=== PATIENT | male | born 1980 | race Caucasian/White ===

== ENCOUNTER 2021-09-16 09:49 | Inpatient (IN) | payer OTHER ==
[~2021-09-16] VITALS: Ht 175.3 cm; Wt 97.5 kg
[2021-09-16 12:35] VITALS: BP 132/76
[2021-09-16] MEDS ORDERED: ACETAMINOPHEN 325 MG TABLET PO PRN (13:15)
[2021-09-16] MEDS ORDERED: OxyCODONE HCL 10 MG IR TABLET PO PRN ×2 (13:15→15:30)
[2021-09-16] MEDS ORDERED: MELATONIN 5 MG TABLET PO PRN (14:30)
[2021-09-16] MEDS: ACETAMINOPHEN 325 MG TABLET PO SCH ×2 (14:39→21:52)
[2021-09-16] MEDS: GABAPENTIN 400 MG CAPSULE PO SCH ×2 (16:37→20:35)
[2021-09-16] MEDS: METHOCARBAMOL 750 MG TABLET PO SCH ×2 (16:37→20:36)
[2021-09-16] MEDS ORDERED: SODIUM CL IRRIG SOLN BOTTLE 250 ML IRRIG ONE (16:42)
[2021-09-16 20:10] VITALS: BP 133/65
[2021-09-16] MEDS: CELECOXIB 200 MG CAPSULE PO SCH (20:36)
[2021-09-16] MEDS: DOCUSATE SODIUM 100 MG CAPSULE PO SCH (20:36)
[2021-09-16] MEDS: SENNA 187 MG TABLET PO SCH (20:36)
[2021-09-16] MEDS: ETHYL ALCOHOL 62% ANTISEPTIC NASAL SANITIZER 0.6 ML AMPUL NASAL SCH (21:52)
[2021-09-16] MEDS: OxyCODONE HCL 5 MG IR TABLET PO PRN (22:22)
[2021-09-16] MEDS ORDERED: CITA-144 PO (23:30)
[2021-09-17] MEDS ORDERED: METHOCARBAMOL 750 MG TABLET PO PRN (04:00)
[2021-09-17] MEDS: ACETAMINOPHEN 325 MG TABLET PO SCH ×3 (06:50→21:18)
[2021-09-17 07:17] LABS: EOSINOPHILS % (AUTO) 6.8 % (1.0-6.0); HEMATOCRIT 25.5 % (41-53); HEMOGLOBIN 8.8 g/dL (13.5-17.5); LYMPHOCYTES # (AUTO) 1.3 K/uL (1.0-4.8); LYMPHOCYTES % (AUTO) 26.6 % (22.0-44.0); MEAN CORPUSCULAR HEMOGLOBIN 29.8 pg (26.0-34.0); MEAN CORPUSCULAR HGB CONC 34.4 G/dL (31.0-37.0); MEAN CORPUSCULAR VOLUME 87 fL (80-100); MONOCYTES # (AUTO) 0.6 K/uL (0.1-1.0); MONOCYTES % (AUTO) 11.4 % (2.0-9.0); NEUTROPHILS # (AUTO) 2.7 K/uL (1.8-7.7); NEUTROPHILS % (AUTO) 54.2 % (40.0-70.0); PLATELET COUNT (AUTO) 470 K/uL (150-450); RED BLOOD CELL COUNT(AUTO) 2.94 MIL/uL (4.50-5.90); RED CELL DISTRIBUTION WIDTH 14.3 % (11.5-14.5)
[2021-09-17 07:33] LABS: ALANINE AMINOTRANSFERASE 37 U/L (12-78); ALKALINE PHOSPHATASE 70 U/L (46-116); ANION GAP 10 mmol/L (8-16); ASPARTATE AMINOTRANSFERASE 21 U/L (15-37); BILIRUBIN,TOTAL 0.5 mg/dL (0.1-1.0); CALCIUM, TOTAL 9.1 mg/dL (8.8-10.5); CARBON DIOXIDE 25 mmol/L (22-29); CHLORIDE 104 mmol/L (98-107); CREATININE 0.93 mg/dL (0.60-1.30); GLUCOSE,RANDOM 88 mg/dL (70-110); POTASSIUM 3.6 mmol/L (3.5-5.1); SODIUM SERUM 139 mmol/L (136-145); TOTAL PROTEIN, SERUM 6.7 g/dL (6.4-8.2); UREA NITROGEN, BLOOD 11 mg/dL (7-18)
[2021-09-17 07:36] LABS: GLOMERULAR FILTR. RATE CALC > 60 mL/min (>60)
[2021-09-17 07:40] VITALS: BP 119/73
[2021-09-17] MEDS: CELECOXIB 200 MG CAPSULE PO SCH ×2 (08:29→21:09)
[2021-09-17] MEDS: ETHYL ALCOHOL 62% ANTISEPTIC NASAL SANITIZER 0.6 ML AMPUL NASAL SCH ×2 (08:29→21:09)
[2021-09-17] MEDS: CITALOPRAM HYDROBROMIDE 20 MG TABLET PO SCH (08:31)
[2021-09-17] MEDS: DOCUSATE SODIUM 100 MG CAPSULE PO SCH ×2 (08:31→21:00)
[2021-09-17] MEDS: ENOXAPARIN SODIUM 40 MG/0.4 ML PF SYRINGE SQ SCH (08:32)
[2021-09-17] MEDS: GABAPENTIN 400 MG CAPSULE PO SCH ×3 (08:32→21:18)
[2021-09-17] MEDS: POLYETHYLENE GLYCOL 3350 17 GM PACKET PO SCH (08:32)
[2021-09-17] MEDS: OxyCODONE HCL 5 MG IR TABLET PO PRN ×4 (08:33→21:15)
[2021-09-17] MEDS: SENNA 187 MG TABLET PO SCH (21:00)
[2021-09-17 21:15] VITALS: BP 121/79
[2021-09-18] MEDS: ACETAMINOPHEN 325 MG TABLET PO SCH ×3 (06:20→21:00)
[2021-09-18 07:40] VITALS: BP 127/78
[2021-09-18] MEDS: ETHYL ALCOHOL 62% ANTISEPTIC NASAL SANITIZER 0.6 ML AMPUL NASAL SCH ×2 (08:41→20:57)
[2021-09-18] MEDS: POLYETHYLENE GLYCOL 3350 17 GM PACKET PO SCH (08:42)
[2021-09-18] MEDS: DOCUSATE SODIUM 100 MG CAPSULE PO SCH ×2 (08:42→20:59)
[2021-09-18] MEDS: GABAPENTIN 400 MG CAPSULE PO SCH ×3 (08:42→20:57)
[2021-09-18] MEDS: CELECOXIB 200 MG CAPSULE PO SCH ×2 (08:42→20:58)
[2021-09-18] MEDS: CITALOPRAM HYDROBROMIDE 20 MG TABLET PO SCH (08:42)
[2021-09-18] MEDS: ENOXAPARIN SODIUM 40 MG/0.4 ML PF SYRINGE SQ SCH (08:43)
[2021-09-18] MEDS: OxyCODONE HCL 5 MG IR TABLET PO PRN ×3 (08:51→19:33)
[2021-09-18 20:30] VITALS: BP 123/83
[2021-09-18] MEDS: SENNA 187 MG TABLET PO SCH (20:58)
[2021-09-19] MEDS: ACETAMINOPHEN 325 MG TABLET PO SCH ×3 (05:49→21:00)
[2021-09-19] MEDS: OxyCODONE HCL 5 MG IR TABLET PO PRN ×4 (05:49→20:56)
[2021-09-19] MEDS ORDERED: CELE200 PO (06:08)
[2021-09-19] MEDS ORDERED: GABA-1201 PO (06:08)
[2021-09-19 08:02] VITALS: BP 127/78
[2021-09-19] MEDS: ETHYL ALCOHOL 62% ANTISEPTIC NASAL SANITIZER 0.6 ML AMPUL NASAL SCH ×2 (08:36→20:55)
[2021-09-19] MEDS: GABAPENTIN 400 MG CAPSULE PO SCH ×3 (08:37→20:56)
[2021-09-19] MEDS: ENOXAPARIN SODIUM 40 MG/0.4 ML PF SYRINGE SQ SCH (08:37)
[2021-09-19] MEDS: CITALOPRAM HYDROBROMIDE 20 MG TABLET PO SCH (08:37)
[2021-09-19] MEDS: CELECOXIB 200 MG CAPSULE PO SCH ×2 (08:37→20:56)
[2021-09-19] MEDS: DOCUSATE SODIUM 100 MG CAPSULE PO SCH ×2 (08:38→21:00)
[2021-09-19] MEDS: POLYETHYLENE GLYCOL 3350 17 GM PACKET PO SCH (08:38)
[2021-09-19 20:45] VITALS: BP 130/81
[2021-09-19] MEDS: SENNA 187 MG TABLET PO SCH (21:00)
[2021-09-20] MEDS: ACETAMINOPHEN 325 MG TABLET PO SCH ×3 (06:50→20:26)
[2021-09-20] MEDS: OxyCODONE HCL 5 MG IR TABLET PO PRN ×3 (06:50→15:57)
[2021-09-20 07:35] VITALS: BP 137/79
[2021-09-20] MEDS: ETHYL ALCOHOL 62% ANTISEPTIC NASAL SANITIZER 0.6 ML AMPUL NASAL SCH ×2 (08:18→20:25)
[2021-09-20] MEDS: CELECOXIB 200 MG CAPSULE PO SCH ×2 (08:19→20:25)
[2021-09-20] MEDS: CITALOPRAM HYDROBROMIDE 20 MG TABLET PO SCH (08:19)
[2021-09-20] MEDS: ENOXAPARIN SODIUM 40 MG/0.4 ML PF SYRINGE SQ SCH (08:20)
[2021-09-20] MEDS: GABAPENTIN 400 MG CAPSULE PO SCH ×3 (08:20→20:26)
[2021-09-20] MEDS: DOCUSATE SODIUM 100 MG CAPSULE PO SCH ×2 (08:20→21:00)
[2021-09-20] MEDS: POLYETHYLENE GLYCOL 3350 17 GM PACKET PO SCH (08:20)
[2021-09-20 20:27] VITALS: BP 132/79
[2021-09-20] MEDS: OxyCODONE HCL 10 MG IR TABLET PO PRN (20:27)
[2021-09-20] MEDS: SENNA 187 MG TABLET PO SCH (21:00)
[2021-09-21] MEDS: ACETAMINOPHEN 325 MG TABLET PO SCH ×3 (06:26→22:16)
[2021-09-21] MEDS: ENOXAPARIN SODIUM 40 MG/0.4 ML PF SYRINGE SQ SCH (08:35)
[2021-09-21] MEDS: GABAPENTIN 400 MG CAPSULE PO SCH ×3 (08:35→20:48)
[2021-09-21] MEDS: CITALOPRAM HYDROBROMIDE 20 MG TABLET PO SCH (08:35)
[2021-09-21] MEDS: ETHYL ALCOHOL 62% ANTISEPTIC NASAL SANITIZER 0.6 ML AMPUL NASAL SCH ×2 (08:35→21:19)
[2021-09-21] MEDS: CELECOXIB 200 MG CAPSULE PO SCH ×2 (08:36→20:48)
[2021-09-21] MEDS: DOCUSATE SODIUM 100 MG CAPSULE PO SCH ×2 (08:36→21:00)
[2021-09-21] MEDS: POLYETHYLENE GLYCOL 3350 17 GM PACKET PO SCH (08:37)
[2021-09-21 09:06] VITALS: BP 122/77
[2021-09-21] MEDS: OxyCODONE HCL 10 MG IR TABLET PO PRN ×3 (09:29→20:48)
[2021-09-21] MEDS ORDERED: OxyCODONE HCL 5 MG IR TABLET PO PRN (11:30)
[2021-09-21 20:48] VITALS: BP 120/73
[2021-09-21] MEDS: SENNA 187 MG TABLET PO SCH (21:00)
[2021-09-22] MEDS ORDERED: OXYC10TA92 PO (04:45)
[2021-09-22] MEDS ORDERED: ENOX40SY14 SQ (04:48)
[2021-09-22] MEDS: ACETAMINOPHEN 325 MG TABLET PO SCH ×3 (06:01→22:08)
[2021-09-22 07:23] LABS: BASOPHILS % (AUTO) 1.2 % (0.0-2.0); EOSINOPHILS % (AUTO) 6.3 % (1.0-6.0); HEMATOCRIT 29.7 % (41-53); HEMOGLOBIN 10.1 g/dL (13.5-17.5); LYMPHOCYTES # (AUTO) 1.9 K/uL (1.0-4.8); MEAN CORPUSCULAR HEMOGLOBIN 29.6 pg (26.0-34.0); MEAN CORPUSCULAR VOLUME 87 fL (80-100); MONOCYTES # (AUTO) 0.6 K/uL (0.1-1.0); MONOCYTES % (AUTO) 10.5 % (2.0-9.0); NEUTROPHILS # (AUTO) 2.5 K/uL (1.8-7.7); PLATELET COUNT (AUTO) 398 K/uL (150-450); RED BLOOD CELL COUNT(AUTO) 3.41 MIL/uL (4.50-5.90); RED CELL DISTRIBUTION WIDTH 15.3 % (11.5-14.5)
[2021-09-22 08:05] VITALS: BP 126/77
[2021-09-22] MEDS: ETHYL ALCOHOL 62% ANTISEPTIC NASAL SANITIZER 0.6 ML AMPUL NASAL SCH ×2 (08:48→20:43)
[2021-09-22] MEDS: ENOXAPARIN SODIUM 40 MG/0.4 ML PF SYRINGE SQ SCH (08:49)
[2021-09-22] MEDS: POLYETHYLENE GLYCOL 3350 17 GM PACKET PO SCH (08:49)
[2021-09-22] MEDS: DOCUSATE SODIUM 100 MG CAPSULE PO SCH ×2 (08:49→20:44)
[2021-09-22] MEDS: CELECOXIB 200 MG CAPSULE PO SCH ×2 (08:50→20:43)
[2021-09-22] MEDS: GABAPENTIN 400 MG CAPSULE PO SCH ×3 (08:50→20:43)
[2021-09-22] MEDS: CITALOPRAM HYDROBROMIDE 20 MG TABLET PO SCH (08:50)
[2021-09-22] MEDS: OxyCODONE HCL 10 MG IR TABLET PO PRN ×2 (08:51→20:43)
[2021-09-22 20:40] VITALS: BP 130/77
[2021-09-22] MEDS: SENNA 187 MG TABLET PO SCH (20:44)
[2021-09-23] MEDS: ACETAMINOPHEN 325 MG TABLET PO SCH (06:20)
[2021-09-23 07:30] VITALS: BP 123/75
[2021-09-23] MEDS: ETHYL ALCOHOL 62% ANTISEPTIC NASAL SANITIZER 0.6 ML AMPUL NASAL SCH (07:55)
[2021-09-23] MEDS: CITALOPRAM HYDROBROMIDE 20 MG TABLET PO SCH (07:56)
[2021-09-23] MEDS: OxyCODONE HCL 10 MG IR TABLET PO PRN (07:56)
[2021-09-23] MEDS: CELECOXIB 200 MG CAPSULE PO SCH (07:56)
[2021-09-23] MEDS: POLYETHYLENE GLYCOL 3350 17 GM PACKET PO SCH (07:56)
[2021-09-23] MEDS: DOCUSATE SODIUM 100 MG CAPSULE PO SCH (07:56)
[2021-09-23] MEDS: GABAPENTIN 400 MG CAPSULE PO SCH (07:56)
[2021-09-23] MEDS: ENOXAPARIN SODIUM 40 MG/0.4 ML PF SYRINGE SQ SCH (09:35)
[2021-09-23] MEDS ORDERED: SODIUM CL IRRIG SOLN BOTTLE 250 ML IRRIG ONE (10:23)
[2021-09-23] MEDS ORDERED: CITA-144 PO (10:31)
[2021-09-23] MEDS ORDERED: ENOX40SY14 SQ (10:31)
[2021-09-23] MEDS ORDERED: CELE200 PO (10:31)
[2021-09-23] MEDS ORDERED: POLY17PO47 PO (10:31)
[2021-09-23] MEDS ORDERED: GABA-1201 PO (10:31)
[2021-09-23] MEDS ORDERED: OXYC10TA48 PO (10:31)
[2021-09-23] MEDS ORDERED: DOCU-385 PO (10:31)
[2021-09-23] MEDS ORDERED: SENN-187 PO (10:31)
[2021-09-23] MEDS ORDERED: ACET325T51 PO (10:31)
== END 2021-09-23 12:10 | disposition home or self-care (01) | DRG 563 ==
LOC: 2WR 12:30
PROVIDERS: ADMIT Physical Medicine & Rehabilitation; ATTEND Physical Medicine & Rehabilitation
DX: S82.141A Displaced bicondylar fracture of right tibia, initial encounter for closed fracture (principal); W18.39XA Other fall on same level, initial encounter; F41.9 Anxiety disorder, unspecified; D64.9 Anemia, unspecified; Y93.89 Activity, other specified; Y92.89 Other specified places as the place of occurrence of the external cause; Y99.8 Other external cause status; Z86.73 Personal history of transient ischemic attack (TIA), and cerebral infarction without residual deficits
CPT/HCPCS: 80053; 85025; 87081; 97110; 97116; 97161; 97166; 97530; 97535; 99366; J1650